=== PATIENT | female | born 1965 | race American Indian/Alaskan Native ===

== ENCOUNTER 2017-08-11 17:41 | Emergency (ER) | payer OTHER ==
--- NOTE | 2017-08-11 20:19 | C.PDOC ---
History Of Present Illness 52 y/o female presents to the ED complaining of rib and hand pain since yesterday. Patient states she fell, and is now complaining of pain to left ribs and right hand/ wrist. Denies any head injury or LOC. No neck pain, back pain, shortness of breath, numbness, tingling, weakness, or other injury. Pt denies recent IV drug use Time Seen by Provider: 08/11/17 19:19 Chief Complaint (Nursing): Finger,Hand,&Wrist History Per: Patient History/Exam Limitations: no limitations Onset/Duration Of Symptoms: Days (x2) Current Symptoms Are (Timing): Still Present Past Medical History Reviewed: Historical Data, Nursing Documentation, Vital Signs Vital Signs: Last Vital Signs Temp 98.2 F 08/11/17 17:52 Pulse 86 08/11/17 17:52 Resp 20 08/11/17 17:52 BP 108/72 08/11/17 17:52 Pulse Ox 96 08/11/17 20:21 - Medical History PMH: Asthma, HIV (Unknown CD4 or Viral Load as of 09/02/14) Surgical History: No Surg Hx Family History: States: Unknown Family Hx - Social History Hx Tobacco Use: Yes Hx Alcohol Use: Yes Hx Substance Use: Yes (''past use of heroine and cocaine'') - Immunization History Hx Tetanus Toxoid Vaccination: No Hx Influenza Vaccination: No Hx Pneumococcal Vaccination: No Review Of Systems Except As Marked, All Systems Reviewed And Found Negative. Cardiovascular: Negative for: Chest Pain Respiratory: Negative for: Shortness of Breath Musculoskeletal: Positive for: Other (Left rib pain). Negative for: Neck Pain, Back Pain, Hand Pain (right/wrist) Neurological: Negative for: Weakness, Numbness (and tingling) Physical Exam - Physical Exam Appears: Non-toxic, No Acute Distress Skin: Normal Color, Warm, Dry Head: Atraumatic, Normacephalic Eye(s): bilateral: Normal Inspection, PERRL, EOMI Oral Mucosa: Moist Neck: Normal ROM, No Midline Cervical Tenderness, Supple Chest: Tenderness (diffusely to the left intracostal area) Cardiovascular: Rhythm Regular, No Murmur Respiratory: Normal Breath Sounds, No Rhonchi, No Wheezing Extremity: Tenderness (to right hand and wrist), Capillary Refill (is normal), No Deformity, Swelling (to the right hand) Pulses: Left Radial: Normal, Right Radial: Normal Neurological/Psych: Oriented x3, Normal Speech, No Other (focal deficits) ED Course And Treatment O2 Sat by Pulse Oximetry: 96 (RA) Pulse Ox Interpretation: Normal - Other Rad Left ribs X-Ray: Interpreted by Me, Viewed By Me Interpretation: No fx, no pneumo Rt hand/ wrist X-Ray: Interpreted by Me, Viewed By Me Interpretation: No fx or dislocation Progress Note: Pending rib x-rays and right hand/wrist x-ray. Motrin PO given in the ED. Pt placed in wrist splinr and sling. Advised clinic follow up. Return precautions discussed and understood by pt Disposition Counseled Patient/Family Regarding: Diagnosis, Need For Followup, Rx Given - Disposition Disposition: HOME/ ROUTINE Disposition Time: 20:50 Condition: STABLE Additional Instructions: Please apply ICE to area Elevate arm Take meds as directed Return to ER if worse Prescriptions: Ibuprofen [Motrin] 600 mg PO Q6H #20 tab Instructions: Bruised Rib (DC), Contusion (DC) Forms: Free [employer] Clear (Kinyarwanda) - Clinical Impression Clinical Impression: Contusion of rib on left side, Contusion of hand, right, Wrist pain, right - PA / PROGRESS WORKER / Resident Statement MD/DO has reviewed & agrees with the documentation as recorded. - Scribe Statement The provider has reviewed the documentation as recorded by the Scribe (Ro Coombs) All medical record entries made by the Scribe were at my direction and personally dictated by me. I have reviewed the chart and agree that the record accurately reflects my personal performance of the history, physical exam, medical decision making, and the department course for this patient. I have also personally directed, reviewed, and agree with the discharge instructions and disposition.
[2017-08-11 20:58] VITALS: BP 100/71; PULSE 71; RESP 18; TEMP 98; O2SAT 98
--- NOTE | 2017-08-12 08:12 | RAD ---
PROCEDURE: Right Wrist Radiographs. HISTORY: r/o fx COMPARISON: None. FINDINGS: BONES: Questionable triquetrum fracture. JOINTS: Unremarkable. SOFT TISSUES: Dorsal wrist soft tissue swelling. OTHER FINDINGS: None. IMPRESSION: Questionable triquetrum fracture. ER notification submitted electronically.
--- NOTE | 2017-08-12 08:12 | RAD ---
PROCEDURE: Right Hand Radiographs. HISTORY: r/o fx COMPARISON: None. FINDINGS: BONES: Questionable triquetrum fracture. JOINTS: Unremarkable. SOFT TISSUES: Dorsal wrist soft-tissue swelling. OTHER FINDINGS: None. IMPRESSION: Questionable triquetrum fracture. ER notification submitted electronically.
--- NOTE | 2017-08-12 08:15 | RAD ---
PROCEDURE: Radiographs of the Chest and Left Ribs. HISTORY: r/o fx COMPARISON: None available. TECHNIQUE: Frontal radiograph of the chest and multiple oblique radiographs of the left ribs were obtained. FINDINGS: LEFT RIBS: No fracture or focal lesion visualized. LUNGS: Clear. PLEURA: No pneumothorax or pleural fluid. CARDIOVASCULAR: Normal sized heart. No pulmonary vascular congestion. OTHER FINDINGS: Small calcifications in the left axillary recess. IMPRESSION: Unremarkable radiographs of the chest and left ribs. No left rib fracture. Small calcifications in the left axillary recess may represent degenerative loose bodies. MRI can be obtained for further evaluation as clinically warranted.
--- NOTE | 2017-08-14 07:35 | CARD ---
APPROVED REPORT EKG Measurement Heart [id number] ME 130P31 [id number] <Conclusion> Normal sinus rhythm Normal ECG
== END 2017-08-11 20:58 | disposition home or self-care (01) ==
LOC: C.ER 17:41
DX: S20.212A Contusion of left front wall of thorax, initial encounter (principal); S60.221A Contusion of right hand, initial encounter; W18.30XA Fall on same level, unspecified, initial encounter; M25.531 Pain in right wrist

== ENCOUNTER 2017-08-30 17:20 | Emergency (ER) | payer SELFPAY ==
[2017-08-30 17:36] VITALS: RESP 18
--- NOTE | 2017-08-30 18:22 | C.PDOC ---
History Of Present Illness Patient is a 52 y/o female, with a Hx of asthma, who presents to the ED with complaints of SOB and anxiety. Patient reports to have walked up 4 steps when she felt out of breath and subsequently felt anxious from the difficulty breathing. Patient admits Hx of intubation one time in the far past; denies any CP or cough. Patient was seen here a few days ago for injured right finger s/p fall and received unremarkable XR; since, patient notes drainage from right third finger at the dorsal aspect. Patient is currently in ED receiving breathing treatment and admits feeling better. Time Seen by Provider: 08/30/17 17:39 Chief Complaint (Nursing): Anxiety History Per: Patient History/Exam Limitations: no limitations Onset/Duration Of Symptoms: Hrs Current Symptoms Are (Timing): Gone Associated Symptoms: denies: Chest Pain, Productive Cough Reports Recently: Seen In ED (unrelated finger injury) Recent travel outside of the [place]: No Past Medical History Reviewed: Historical Data, Nursing Documentation, Vital Signs Vital Signs: Last Vital Signs Temp 98 F 08/30/17 19:07 Pulse 77 08/30/17 19:07 Resp 18 08/30/17 19:07 BP 121/76 08/30/17 19:07 Pulse Ox 96 08/30/17 19:07 - Medical History PMH: Anxiety, Asthma, HIV (Unknown CD4 or Viral Load as of 09/02/14) Surgical History: No Surg Hx Family History: States: No Known Family Hx - Social History Hx Tobacco Use: Yes Hx Alcohol Use: Yes Hx Substance Use: Yes (''past use of heroine and cocaine'') - Immunization History Hx Tetanus Toxoid Vaccination: No Hx Influenza Vaccination: No Hx Pneumococcal Vaccination: No Review Of Systems Cardiovascular: Negative for: Chest Pain Respiratory: Positive for: Shortness of Breath Physical Exam - Physical Exam Appears: Non-toxic, No Acute Distress Skin: Normal Color, Warm, Dry, Other (excoriated region to right third phalange and PIP; no gross cellulitis) Head: Atraumatic, Normacephalic Eye(s): bilateral: Normal Inspection, PERRL, EOMI Oral Mucosa: Moist Chest: Symmetrical Cardiovascular: Rhythm Regular, No Murmur Respiratory: No Rales, No Rhonchi, Wheezing (faint expiratory wheeze) Gastrointestinal/Abdominal: Soft, No Tenderness Neurological/Psych: Oriented x3, Normal Speech, Normal Cognition Additional Physical Exam Comments: Assessment: asthma and wound infection of right third finger. ED Course And Treatment ECG: Interpreted By Me, Viewed By Me ECG Rhythm: Sinus Rhythm, Nonspecific Changes Interpretation Of ECG: normal intervals, normal axis, no st/t wave abnormalities Rate From EC (bpm) O2 Sat by Pulse Oximetry: 100 (room air) Pulse Ox Interpretation: Normal - Radiology CXR: Interpreted by Me, Viewed By Me CXR Interpretation: Yes: No Acute Disease. No: Infiltrates, Pnemothorax Progress Note: CXR ordered. Prednisone administered. Patient is resting comfortably and stable for discharge. Disposition Counseled Patient/Family Regarding: Studies Performed, Diagnosis, Need For Followup, Rx Given - Disposition Referrals: [facility] [Outside] Disposition: HOME/ ROUTINE Disposition Time: 18:23 Condition: IMPROVED Additional Instructions: follow up with medical clinic in 2 days call to make an appointment take medications as prescribed return to ER if symptoms worsens or progress Prescriptions: Albuterol HFA [Ventolin HFA 90 mcg/actuation (8 g)] 2 puff IH [id number] #1 puff Cephalexin [Keflex] 500 mg PO QID #40 capsule predniSONE [predniSONE Tab] 50 mg PO DAILY #4 tab Instructions: Asthma in Adults, Wound Infection Forms: [facility] (Turkmen), General Discharge Instructions - Clinical Impression Clinical Impression: Asthma, Wound infection - Scribe Statement The provider has reviewed the documentation as recorded by the Scribe Tianna Morales All medical record entries made by the Scribe were at my direction and personally dictated by me. I have reviewed the chart and agree that the record accurately reflects my personal performance of the history, physical exam, medical decision making, and the department course for this patient. I have also personally directed, reviewed, and agree with the discharge instructions and disposition.
--- NOTE | 2017-08-30 18:53 | RAD ---
HISTORY: cough COMPARISON: Comparison is made to 09/02/2014 TECHNIQUE: Chest PA and lateral FINDINGS: LUNGS: No active pulmonary disease. PLEURA: No significant pleural effusion identified. No pneumothorax apparent. CARDIOVASCULAR: Normal. OSSEOUS STRUCTURES: No significant abnormalities. VISUALIZED UPPER ABDOMEN: Normal. OTHER FINDINGS: None. IMPRESSION: No radiographic evidence of pneumonia.
[2017-08-30 19:09] VITALS: BP 121/76; PULSE 77; TEMP 98
--- NOTE | 2017-08-31 12:08 | CARD ---
APPROVED REPORT EKG Measurement Heart [id number] CT 122P-12 [id number] <Conclusion> Normal sinus rhythm Normal ECG
[2017-09-01 16:02] VITALS: O2SAT 100
== END 2017-08-30 19:09 | disposition home or self-care (01) ==
LOC: C.ER 17:20
DX: J45.909 Unspecified asthma, uncomplicated (principal); F17.210 Nicotine dependence, cigarettes, uncomplicated; F41.9 Anxiety disorder, unspecified

== ENCOUNTER 2017-11-21 06:25 | Emergency (ER) | payer SELFPAY ==
[2017-11-21] MEDS ORDERED: Albuterol-Ipratrop 3 mg / 0.5 (3 ml) UD ONE (06:59)
[2017-11-21] MEDS ORDERED: Albuterol-Ipratrop 3 mg / 0.5 (3 ml) UD INH STA (06:59)
--- NOTE | 2017-11-21 07:30 | C.PDOC ---
History Of Present Illness Patient is a 52 y/o female, with PMH of asthma and HIV (Unknown CD4 or Viral Load) with complaints of 2 week history of cough and SOB since yesterday. Patient is a smoker. Denies fever, chills, headache, chest pain. Time Seen by Provider: 11/21/17 07:02 Chief Complaint (Nursing): Cough, Cold, Congestion History Per: Patient History/Exam Limitations: no limitations Onset/Duration Of Symptoms: Days Past Medical History Reviewed: Historical Data, Nursing Documentation, Vital Signs Vital Signs: Last Vital Signs Temp 98.1 F 11/21/17 07:53 Pulse 76 11/21/17 07:53 Resp 18 11/21/17 07:53 BP 126/76 11/21/17 07:53 Pulse Ox 97 11/21/17 07:53 - Medical History PMH: Anxiety, Asthma, HIV (Unknown CD4 or Viral Load as of 09/02/14) Family History: States: Unknown Family Hx - Social History Hx Tobacco Use: Yes Hx Alcohol Use: Yes Hx Substance Use: Yes (''past use of heroine and cocaine'') - Immunization History Hx Tetanus Toxoid Vaccination: No Hx Influenza Vaccination: No Hx Pneumococcal Vaccination: No Review Of Systems Except As Marked, All Systems Reviewed And Found Negative. Respiratory: Positive for: Cough, Shortness of Breath Physical Exam - Physical Exam Appears: Non-toxic, No Acute Distress, Other (somnolent) Skin: Warm, Dry, No Rash Head: Atraumatic, Normacephalic Eye(s): bilateral: Normal Inspection, EOMI Nose: Normal Oral Mucosa: Moist Neck: Normal ROM Chest: Symmetrical Cardiovascular: Rhythm Regular, No Murmur Respiratory: No Rales, Rhonchi, No Wheezing, No Plerual Rub Gastrointestinal/Abdominal: Soft, No Tenderness Extremity: Bilateral: Atraumatic, Normal ROM Neurological/Psych: Oriented x3, Normal Speech ED Course And Treatment O2 Sat by Pulse Oximetry: 96 Medical Decision Making Medical Decision Making: Per RN, patient presented with faint wheeze and rhonchi and was given duoneb and Tylenol prior to my assessment. On my examination patient was not wheezing. CXR ordered and reviewed. CXR shows COPD, no PCP pna; Dr Joshi agrees On re-eval, fever reduced and the patient in no respiratory distress, no hypoxia. Patient given Zithromax and prescription. Advised to follow up in the clinic. Disposition Counseled Patient/Family Regarding: Diagnosis, Need For Followup, Rx Given - Disposition Referrals: Keeley Vega MD [Staff Provider] - Disposition: HOME/ ROUTINE Disposition Time: 07:42 Condition: STABLE Additional Instructions: Follow up with the clinic in 2-5 days for further evaluation. Take medications as prescribed. Prescriptions: Albuterol HFA [Ventolin HFA 90 mcg/actuation (8 g)] 1 puff IH Q4 #1 puff Azithromycin [Zithromax] 250 mg PO DAILY #4 tab Instructions: Acute Bronchitis Forms: [facility] (Romanian) - POA Present On Arrival: None - Clinical Impression Clinical Impression: Bronchitis
[2017-11-21 07:54] VITALS: BP 126/76; PULSE 76; RESP 18; TEMP 98.1
[2017-11-21 08:02] VITALS: O2SAT 96
--- NOTE | 2017-11-21 16:00 | RAD ---
HISTORY: fever, cough COMPARISON: Comparison chest 08/30/2017 TECHNIQUE: Chest PA and lateral FINDINGS: LUNGS: Increased/ coarsened interstitial markings with scattered peribronchial cuffing changes. Findings could represent sequela of reactive/ inflammatory airway disease or viral illness. PLEURA: No significant pleural effusion identified. No pneumothorax apparent. CARDIOVASCULAR: Normal. OSSEOUS STRUCTURES: No significant abnormalities. VISUALIZED UPPER ABDOMEN: Normal. OTHER FINDINGS: None. IMPRESSION: Increased/ coarsened interstitial markings with scattered peribronchial cuffing changes. Findings could represent sequela of reactive/ inflammatory airway disease or viral illness.
== END 2017-11-21 08:08 | disposition home or self-care (01) ==
LOC: C.ER 06:25
DX: J40 Bronchitis, not specified as acute or chronic (principal); F17.210 Nicotine dependence, cigarettes, uncomplicated

== ENCOUNTER 2018-04-04 08:16 | Emergency (ER) | payer MEDICAID ==
[2018-04-04 08:27] VITALS: BMI 22.1
[2018-04-04 08:34] VITALS: RESP 18; O2SAT 99
[2018-04-04] MEDS ORDERED: Oxycodone/Acetaminophen 5/325 mg Tab PO STA (08:50)
[2018-04-04] MEDS ORDERED: Oxycodone/Acetaminophen 5/325 mg Tab ONE (09:05)
[2018-04-04] MEDS ORDERED: Lidocaine 1% Inj (20ml) INFIL STA (09:16)
--- NOTE | 2018-04-04 09:28 | RAD ---
Left wrist three views History: Fracture. Comparison: None available. Findings: Prominent comminuted and distracted fracture deformity through the distal radius. Correlation with bony CT may be helpful to better evaluate for intra-articular involvement. Impression: Prominent comminuted and distracted fracture deformity through the distal radius. Correlation with bony CT may be helpful to better evaluate for intra-articular involvement.
--- NOTE | 2018-04-04 09:29 | RAD ---
Left hand three views History: Follow-up. Comparison: None available. Findings: Prominent comminuted and distracted fracture deformity through the distal radius. Correlation with bony CT may be helpful to better evaluate for intra-articular involvement. Narrowing of the 2nd through 5th PIP and DIP joint spaces. Impression: Prominent comminuted and distracted fracture deformity through the distal radius. Correlation with bony CT may be helpful to better evaluate for intra-articular involvement.
[2018-04-04] MEDS ORDERED: Lidocaine Hydrochloride 5 ML INJ ONE (09:32)
--- NOTE | 2018-04-04 09:38 | RAD ---
Left elbow three views History: Injury. Fall. Comparison: None available. Findings: Prominent heterotopic and or productive bone formation seen at the articulation of the proximal radius and ulna at the level of the proximal medullary cavities. This may represent the sequelae of chronic traumatic injury versus chronic inflammatory and or infectious changes versus additional etiology. Clinical correlation. Correlation with prior studies may be helpful if clinically indicated. No significant elbow joint effusion. No evidence of acute displaced fracture or dislocation. Impression: Prominent heterotopic and or productive bone formation seen at the articulation of the proximal radius and ulna at the level of the proximal medullary cavities. This may represent the sequelae of chronic traumatic injury versus chronic inflammatory and or infectious changes versus additional etiology. Clinical correlation. Correlation with prior studies may be helpful if clinically indicated. If pain persists, consider correlation with MRI.
--- NOTE | 2018-04-04 10:52 | C.PDOC ---
History Of Present Illness 52 year old female presents to ED for evaluation of left hand and wrist pain and swelling after slip and fall. Pt states she fell forward on icy surface yesterday, and landed on her left hand. Denies head injury, LOC, extremity weakness, change in sensation, or any other complaints at this time. Time Seen by Provider: 04/04/18 08:20 Chief Complaint (Nursing): Upper Extremity Problem/Injury History Per: Patient History/Exam Limitations: no limitations Onset/Duration Of Symptoms: Days Current Symptoms Are (Timing): Still Present Quality: "Pain" Additional History Per: Patient Past Medical History Reviewed: Historical Data, Nursing Documentation, Vital Signs Vital Signs: Last Vital Signs Temp 98.1 F 04/04/18 08:27 Pulse 91 H 04/04/18 08:27 Resp 18 04/04/18 08:27 BP 129/85 04/04/18 08:27 Pulse Ox 99 04/04/18 08:27 - Medical History PMH: Anemia, Anxiety, Asthma, HIV (Unknown CD4 or Viral Load as of 09/02/14) Family History: States: Unknown Family Hx - Social History Hx Tobacco Use: Yes Hx Alcohol Use: Yes Hx Substance Use: No (''past use of heroine and cocaine'') - Immunization History Hx Tetanus Toxoid Vaccination: No Hx Influenza Vaccination: No Hx Pneumococcal Vaccination: No Review Of Systems Except As Marked, All Systems Reviewed And Found Negative. Constitutional: Negative for: Fever, Chills Musculoskeletal: Positive for: Hand Pain (left) Neurological: Negative for: Weakness, Numbness Physical Exam - Physical Exam Appears: Non-toxic, Other (In moderate pain, tearful) Skin: Normal Color, Warm, Dry Head: Atraumatic, Normacephalic Eye(s): bilateral: Normal Inspection Oral Mucosa: Moist Neck: Normal ROM, Supple Cardiovascular: Rhythm Regular, No Murmur Respiratory: Normal Breath Sounds, No Rales, No Rhonchi, No Wheezing Extremity: Normal ROM, Tenderness (left wrist), Capillary Refill (less than 2 seconds), Deformity (left wrist deformity), Swelling (left hand and wrist) Extremity: Bilateral: Normal Color And Temperature Pulses: Left Radial: Normal, Right Radial: Normal Neurological/Psych: Oriented x3, Normal Speech, Normal Motor, Normal Sensation (left hand digits) ED Course And Treatment O2 Sat by Pulse Oximetry: 99 (RA) Pulse Ox Interpretation: Normal - Other Rad Left Elbow Xray X-Ray: Viewed By Me, Read By Radiologist Interpretation: Accession No. : [id number]. Patient Name / ID : HI KIRK / [id number]. Exam Date : 04/04/2018 08:57:47 ( Approved ). Study Comment : Sex / Age : F / 52Y. Creator : Sebastian Carvajal MD. Dictator : Sebastian Carvajal MD. Cytotechnologist/Cytology Supervisor : Rehabilitation Medicine Physician : Sebastian Carvajal MD. Approver2 : Report Date : 04/04/2018 09:34:57. My Comment : . Left elbow three views. History: Injury. Fall. Comparison: None talib ilable. Findings: Prominent heterotopic and or productive bone formation seen at the articulation of the proximal radius and ulna at the level of the proximal medullary cavities. This may represent the sequelae of chronic traumatic injury versus chronic inflammatory and or infectious changes versus additional etiology. Clinical correlation. Correlation with prior studies may be helpful if clinically indicated. No significant elbow joint effusion. No evidence of acute displaced fracture or dislocation. Impression: Prominent heterotopic and or productive bone formation seen at the articulation of the proximal radius and ulna at the level of the proximal medullary cavities. This may represent the sequelae of chronic traumatic injury versus chronic inflammatory and or infectious changes versus additional etiology. Clinical correlation. Correlation with prior studies may be helpful if clinically indicated. If pain persists, consider correlation with MRI. Left Hand Xray X-Ray: Viewed By Me, Read By Radiologist Interpretation: Accession No. : [id number]. Patient Name / ID : HI KIRK / [id number]. Exam Date : 04/04/2018 08:57:57 ( Approved ). Study Comment : Sex / Age : F / 52Y. Creator : Sebastian Carvajal MD. Dictator : Sebastian Carvajal MD. Cytotechnologist/Cytology Supervisor : Rehabilitation Medicine Physician : Sebastian Carvajal MD. Approver2 : Report Date : 04/04/2018 09:25:43. My Comment : . Left hand three views. History: Follow-up. Comparison: None available. Findings: Prominent comminuted and distracted fracture deformity through the distal radius. Correlation with bony CT may be helpful to better evaluate for intra-articular involvement. Narrowing of the 2nd through 5th PIP and DIP joint spaces. Impression: Prominent comminuted and distracted fracture deformity through the distal radius. Correlation with bony CT may be helpful to better evaluate for intra-articular involvement. Left wrist Xray X-Ray: Viewed By Me, Read By Radiologist Interpretation: Accession No. : [id number]. Patient Name / ID : HI KIRK / [id number]. Exam Date : 04/04/2018 08:58:15 ( Approved ). Study Comment : Sex / Age : F / 52Y. Creator : Sebastian Carvajal MD. Dictator : Sebastian Carvajal MD. Cytotechnologist/Cytology Supervisor : Rehabilitation Medicine Physician : Sebastian Carvajal MD. Approver2 : Report Date : 04/04/2018 09:24:27. My Comment : . Left wrist three views. History: Fracture. Comparison: None available. Findings: Prominent comminuted and distracted fracture deformity through the distal radius. Correlation with bony CT may be helpful to better evaluate for intra-articular involvement. Impression: Prominent comminuted and distracted fracture deformity through the distal radius. Correlation with bony CT may be helpful to better evaluate for intra-articular involvement. Progress Note: Left hand/wrist and elbow Xray was ordered and reviewed. Pt was given Percocet. Reduction of the left hand was performed. Pt tolerated procedure well, without complication. Sugar tong splint was applied by me. Pt is being discharged home with instructions to follow up with otho/hand in 1-2 days for further evaluation. Orthopedic Time Out: Side verified, Site verified, Patient ID confirmed Procedure: Fracture reduction Location: Left, Arm, Hand Consent obtained: Verbal Performed by: Attending Physician Diagnosis: Fracture Type: Comminuted, Distracted Location: Left, Distal Bone: Radius Anesthetic Technique: Regional block (hematoma block), Procedural sedation Anesthetic: Lidocaine 1% Systemic Analgesia: Other (Percocet) Capillary refill: Normal Distal Sensation: Normal Distal Motor Function: Normal Capillary Refill: Normal Distal Sensation: Normal Distal Motor Function: Normal Post-reduction Radiograph: Good Alignment Patient tolerated procedure: Well Disposition Counseled Patient/Family Regarding: Studies Performed, Diagnosis, Need For Followup, Rx Given - Disposition Referrals: Vaibhav Beverly MD [Staff Provider] - Edwige Dumont MD [Staff Provider] - Disposition: HOME/ ROUTINE Disposition Time: 10:50 Condition: STABLE Additional Instructions: FOLLOW UP WITH HAND SURGEON/ORTHOPEDIC SURGEON WITHIN 1 WEEK USE PAIN MEDICATION NEEDED RETURN TO ER IF SYMPTOMS WORSEN Prescriptions: oxyCODONE/Acetaminophen [Percocet 5/325 mg Tab] 1 tab PO QID PRN #15 tab PRN Reason: Pain Instructions: Radius Fracture (DC) Forms: [employer] ([place] Islander) Print Language: CZECH - POA Present On Arrival: Falls Or Trauma - Clinical Impression Clinical Impression: Distal radius fracture, left - Scribe Statement The provider has reviewed the documentation as recorded by the Faridaibe Acosta Martino All medical record entries made by the Faridaibtito were at my direction and personally dictated by me. I have reviewed the chart and agree that the record accurately reflects my personal performance of the history, physical exam, medical decision making, and the department course for this patient. I have also personally directed, reviewed, and agree with the discharge instructions and disposition.
[2018-04-04 11:42] VITALS: BP 124/82; PULSE 83; TEMP 98.5
--- NOTE | 2018-04-04 17:42 | RAD ---
Left wrist three views HISTORY: Postreduction. Comparison: 04/04/2018 FINDINGS: Status post reduction of the distal left radial fracture. Suggestion of possible intra-articular extension at the ulnar aspect of the distal radius. This may be better evaluated with CT scan if clinically indicated. Question mild widening of the scapholunate interval which may represent underlying scapholunate ligament injury. Productive change at the articulation of the proximal radius and ulna. Impression: Status post reduction of the distal left radial fracture. Suggestion of possible intra-articular extension at the ulnar aspect of the distal radius. This may be better evaluated with CT scan if clinically indicated. Question mild widening of the scapholunate interval which may represent underlying scapholunate ligament injury. Productive change at the articulation of the proximal radius and ulna.
== END 2018-04-04 11:32 | disposition home or self-care (01) ==
LOC: C.ER 08:16
DX: S52.592A Other fractures of lower end of left radius, initial encounter for closed fracture (principal); W00.0XXA Fall on same level due to ice and snow, initial encounter